=== PATIENT | female | born 1995 | race Caucasian/White ===

== ENCOUNTER 2018-12-16 11:53 | Emergency (ER) | payer MEDICAID ==
[~2018-12-16] VITALS: Wt 62.7 kg
[2018-12-16 11:57] VITALS: BP 129/81; PULSE 82; RESP 18
--- NOTE | 2018-12-16 14:34 | ERD ---
ER Documentation Chief Complaint Chief Complaint low abd cramping and vaginal bleeding since last night. sent by ob HPI 23-year-old female presents with vaginal spotting starting today. She is referred by primary doctor for evaluation of vaginal bleeding early . She has minimal suprapubic cramping. Denies fevers, vomiting although she has nausea since early . She is a G3 para 1. ROS All systems reviewed and are negative except as per history of present illness. PMhx/Soc Hx Alcohol Use: No Hx Substance Use: No Hx Tobacco Use: No FmHx Family History: No diabetes, No coronary disease, No other Physical Exam Vitals Vital Signs Date Temp Pulse Resp B/P (MAP) Pulse Ox O2 O2 Flow FiO2 Time Delivery Rate 12/16/18 98.0 82 18 129/81 98 11:57 (97) Physical Exam Const: No acute distress. [id number]. Head: Atraumatic Eyes: Normal Conjunctiva ENT: Normal External Ears, Nose and Mouth. Neck: Full range of motion. No meningismus. Resp: Clear to auscultation bilaterally Cardio: Regular rate and rhythm, no murmurs Abd: Soft, no suprapubic tenderness. No tenderness McBurney's point no M urphy sign., non distended. Normal bowel sounds Skin: No petechiae or rashes Back: No midline or flank tenderness Ext: No cyanosis, or edema Neur: Awake and alert Psych: Normal Mood and Affect Result Diagram: 12/16/18 1319 Results 24 hrs Laboratory Tests Test 12/16/18 13:19 White Blood Count 10.4 10^3/ul Red Blood Count 4.27 10^6/ul Hemoglobin 13.2 g/dl Hematocrit 39.0 % Mean Corpuscular Volume 91.3 fl Mean Corpuscular Hemoglobin 30.9 pg Mean Corpuscular Hemoglobin Concent 33.8 g/dl Red Cell Distribution Width 13.2 % Platelet Count 250 10^3/UL Mean Platelet Volume 10.3 fl Immature Granulocytes % 0.300 % Neutrophils % 90.5 % Lymphocytes % 6.1 % Monocytes % 2.8 % Eosinophils % 0.0 % Basophils % 0.3 % Nucleated Red Blood Cells % 0.0 /100WBC Immature Granulocytes # 0.030 10^3/ul Neutrophils # 9.4 10^3/ul Lymphocytes # 0.6 10^3/ul Monocytes # 0.3 10^3/ul Eosinophils # 0.0 10^3/ul Basophils # 0.0 10^3/ul Nucleated Red Blood Cells # 0.0 10^3/ul Urine Color YELLOW Urine Clarity SLIGHTLY CLOUDY Urine pH 5.0 Urine Specific [place] 1.029 Urine Ketones 2+ mg/dL Urine Nitrite NEGATIVE mg/dL Urine Bilirubin NEGATIVE mg/dL Urine Urobilinogen NEGATIVE mg/dL Urine Leukocyte Esterase NEGATIVE Daniel/ul Urine Microscopic RBC 157 /HPF Urine Microscopic WBC 3 /HPF Urine Squamous Epithelial Cells FEW /HPF Urine Bacteria FEW /HPF Urine Mucus FEW /HPF Urine Hemoglobin 3+ mg/dL Urine Glucose NEGATIVE mg/dL Urine Total Protein 1+ mg/dl Beta HCG, Quantitative 1318.9 mIU/ml Procedures/MDM Patient is Rh+. Quantitative hCG 1300. ROCEDURE: US Obstetrical 1st Trimester with endovaginal scanning and Doppler CLINICAL INDICATION: Vaginal bleeding TECHNIQUE: Multiple real-time images were acquired of the patient's maternal abdomen utilizing a curved array transducer. Endovaginal scanning and Doppler were also applied. COMPARISON: None FINDINGS: The uterus is anteverted and normal in size measuring 8.4 cm in sagittal diameter and 4.8 x 4.2 cm in cross diameter. The endometrial stripe is thickened to 1.4 cm. No intrauterine gestational sac or pole is identified. A 3 mm Nabothian cyst is seen in the cervix. The right ovary measures 2.9 x 2.4 x 2.1 cm and contains a corpus lutein cyst. The left ovary measures 2.2 x 1.4 x 1.4 cm and appears normal. Vascular flow is demonstrated in each ovary on Doppler. There is a moderate amount of echogenic fluid seen in the cul-de-sac suspicious for hemoperitoneum. No adnexal mass is evident. IMPRESSION: 1. Providing the presence of a positive test, this would be a of unknown location. Negative for evidence of an intrauterine and negative for evidence of an adnexal mass. Differential diagnosis includes early intrauterine , failed or ectopic . Recommend correlation with serial serum beta HCG and follow-up ultrasound in 7- 10 days or earlier if clinically warranted. Please see reference below. Reference: Henrietta Delvalle et al. NEJ 2013; 369: [id number]. Please note that if the serum beta HCG is greater than 3000 mIU/mL, the probability of a nonviable IUP or ectopic is 99.5% and the probability of a viable IUP is 0.5%. The beta HCG may be higher than predicted for gestational age in early twin pregnancies, and a single serum HCG measurement cannot reliably differentiate an IUP (viable or nonviable) from an ectopic . 2. There is a right ovarian corpus lutein cyst. The left ovary appears normal. Vascular flow is demonstrated in each ovary. 3. A moderate amount of echogenic fluid, possibly hemoperitoneum is seen within the cul-de-sac. 4. No adnexal mass is identified. Wellington Linares Physician Date Time Electronically viewed and signed by Wellington Linares Physician on 12/16/2018 14:01 RH/ Presents with vaginal bleeding without history of clots or tissue for the last day. She is presently 5 weeks by dates. There is no current visible intrauterine or extrauterine . Differential includes early normal , ectopic , miscarriage. She is well-appearing without significant pain. She will be discharged home with recommendations for 2-day recheck of hormones and possibly ultrasound, return precautions for worsening pain, bleeding, fevers, new or worsening symptoms. Current signs or symptoms do not suggest appendicitis, tubo-ovarian abscess, additional causes of abdominal pain. Departure Diagnosis: Primary Impression: Vaginal bleeding in patient at less than 20 weeks ges... Condition: Stable Patient Instructions: Bleeding During Early Additional Instructions: Unable to currently visualized normal . Possible early normal but suspect may be miscarriage or ectopic . recommend repeat hormone level in 2 days. Recheck sooner for fevers, worsening bleeding, new or worsening symptoms. ANDRES CUTLER MD Dec 16, 2018 14:34
== END 2018-12-16 14:47 | disposition home or self-care (01) ==
LOC: FTE 11:53
DX: O20.9 Hemorrhage in early pregnancy, unspecified (principal); Z3A.01 Less than 8 weeks gestation of pregnancy
CPT/HCPCS: 36415; 76801; 76817; 81001; 84702; 85025; 86900; 86901; Z7502

== ENCOUNTER 2018-12-17 17:16 | Inpatient (IN) | payer MEDICAID ==
[~2018-12-17] VITALS: Ht 170.2 cm; Wt 62.9 kg
[2018-12-17] MEDS ORDERED: morphine 4 MG/ML VIAL IV STA (22:47)
[2018-12-17] MEDS ORDERED: ONDANSETRON 4 MG INJ IV STA (22:47)
[2018-12-18] VITALS (26 sets, daily range): BP systolic 109–134; BP diastolic 56–85; PULSE 76–101; RESP 13–31; Ht 170.2 cm; Wt 62.9 kg
[2018-12-18] MEDS ORDERED: SOD CHLORIDE 0.9% 1,000 ML IV ONE
--- NOTE | 2018-12-18 00:07 | ERD ---
ER Documentation Chief Complaint Chief Complaint L pelvic pain with VB X 2 days HPI This is a 23-year-old female, who is , who presents with right lower abdominal pain. She was seen here yesterday, at that time she had a positive quant beta hCG, with no definitive IUP, she is advised to follow-up within 48 hours for repeat ultrasound. She has continued to have pain, as well as vaginal bleeding, although currently she is not bleeding. She has not had a fever, she denies any nausea or vomiting. ROS All systems reviewed and are negative except as per history of present illness. Allergies Allergies: Coded Allergies: No Known Allergy (Unverified , 12/17/18) PMhx/Soc Medical and Surgical Hx: pt denies Surgical Hx History of Surgery: No Anesthesia Reaction: No Hx Neurological Disorder: No Hx Respiratory Disorders: No Hx Cardiac Disorders: No Hx Psychiatric Problems: No Hx Miscellaneous Medical Probl: No Hx Alcohol Use: No Hx Substance Use: No Hx Tobacco Use: No Smoking Status: Never smoker Physical Exam Vitals Vital Signs Date Temp Pulse Resp B/P (MAP) Pulse Ox O2 O2 Flow FiO2 Time Delivery Rate 12/17/18 72 20 129/75 100 Room Air 19:30 (93) 12/17/18 99.1 91 18 144/83 97 17:24 (103) Physical Exam Const: No acute distress Head: Atraumatic Eyes: Normal Conjunctiva ENT: Normal External Ears, Nose and Mouth. Neck: Full range of motion. No meningismus. Resp: Clear to auscultation bilaterally Cardio: Regular rate and rhythm, no murmurs Abd: Soft, there is mild tenderness in the right lower abdominal area, there is no rebound or guarding, non distended. Normal bowel sounds Skin: No petechiae or rashes Back: No midline or flank tenderness Ext: No cyanosis, or edema Neur: Awake and alert Psych: Normal Mood and Affect Result Diagram: 12/17/18193212/17/181932 Results 24 hrs Laboratory Tests Test 12/17/18 19:33 12/17/18 20:00 12/17/18 20:52 White Blood Count 6.8 10^3/ul Red Blood Count 4.14 10^6/ul Hemoglobin 12.6 g/dl Hematocrit 37.6 % Mean Corpuscular Volume 90.8 fl Mean Corpuscular Hemoglobin 30.4 pg Mean Corpuscular 33.5 g/dl Hemoglobin Concent Red Cell Distribution Width 13.2 % Platelet Count 232 10^3/UL Mean Platelet Volume 10.1 fl Immature Granulocytes % 0.300 % Neutrophils % 64.4 % Lymphocytes % 27.3 % Monocytes % 7.4 % Eosinophils % 0.0 % Basophils % 0.6 % Nucleated Red Blood Cells % 0.0 /100WBC Immature Granulocytes # 0.020 10^3/ul Neutrophils # 4.4 10^3/ul Lymphocytes # 1.8 10^3/ul Monocytes # 0.5 10^3/ul Eosinophils # 0.0 10^3/ul Basophils # 0.0 10^3/ul Nucleated Red Blood Cells # 0.0 10^3/ul Sodium Level 141 mmol/L Potassium Level 4.3 mmol/L Chloride Level 109 mmol/L Carbon Dioxide Level 20 mmol/L Anion Gap 12 Blood Urea Nitrogen 7 mg/dl Creatinine 0.56 mg/dl Est Glomerular Filtrat > 60 mL/min Rate mL/min Glucose Level 103 mg/dl Calcium Level 10.1 mg/dl Total Bilirubin 0.2 mg/dl Direct Bilirubin 0.00 mg/dl Indirect Bilirubin 0.2 mg/dl Aspartate Amino 23 IU/L Transf (AST/SGOT) Alanine 26 IU/L Aminotransferase (ALT/SGPT) Alkaline Phosphatase 80 IU/L Total Protein 7.9 g/dl Albumin 4.6 g/dl Globulin 3.30 g/dl Albumin/Globulin Ratio 1.39 Lipase 46 U/L Beta HCG, Quantitative 1700.6 mIU/ml Urine Color YELLOW Urine Clarity CLEAR Urine pH 6.0 Urine Specific [place] 1.027 Urine Ketones 1+ mg/dL Urine Nitrite NEGATIVE mg/dL Urine Bilirubin NEGATIVE mg/dL Urine Urobilinogen 1+ mg/dL Urine Leukocyte Esterase NEGATIVE Daniel/ul Urine Microscopic RBC 10 /HPF Urine Microscopic WBC 2 /HPF Urine Squamous Epithelial Cells FEW /HPF Urine Mucus FEW /HPF Urine Hemoglobin 1+ mg/dL Urine Glucose NEGATIVE mg/dL Urine Total Protein NEGATIVE mg/dl POC Beta HCG, Qualitative POSITIVE Current Medications Medications Dose Sig/Shayan Start Time Status Last (Trade) Ordered Route PRN Stop Time Admin Dose Reason Admin Morphine 4 mg ONCE STAT 12/17/18 DC Sulfate IV 22:47 (morphine) 12/17/18 22:48 Ondansetron 4 mg ONCE STAT 12/17/18 DC HCl (Zofran IV 22:47 Inj) 12/17/18 22:48 Procedures/MDM This is a 23-year-old female presents for evaluation of right lower abdominal pain. Her ultrasound showed a ectopic estimated about 5 weeks, there was free fluid noted, the patient is otherwise medically stable. Her hCG, up trended by about 400, [employer] consult evaluated the patient at the bedside, and will admit the patient, for monitoring, and will plan on decision of surgery, versus medical management. Accepting Care Team: Current data and ongoing care discussed. Primary: Lizeth Consulting: None Outstanding Data: none Departure Diagnosis: Primary Impression: Ectopic Location of ectopic : unspecified location Intrauterine status: unspecified Qualified Codes: O00.90 - Unspecified ectopic without intrauterine Condition: CASSANDRA Elder MD Dec 18, 2018 00:02
--- NOTE | 2018-12-18 00:18 | HP ---
Date/Time of Note Date/Time of Note DATE: 12/18/18 TIME: 00:06 Assessment/Plan VTE Prophylaxis SCD contraindicated: low risk/ambulating Pharmacological prophylaxis: NA/contraindicated Pharm contraindication: low risk/ambulating Lines/Catheters IV Catheter Type (from Nrsg): Peripheral IV Central line still needed: No Urinary Cath still in place: No Assessment/Plan Assessment/Plan A: Right ectopic . Pt is stable. P: Discussed with pt her options of methotrexate vs surgery and the pros and cons associated with each. Will admit the pt, keep her NPO and notify Dr Raymond in the AM that she is here so they may make a decision together about the best course of action for her. Result Diagram: 12/17/18193212/17/181932 Results 24hrs Laboratory Tests Test 12/17/18 19:33 12/17/18 20:00 12/17/18 20:52 White Blood Count 6.8 # Red Blood Count 4.14 L Hemoglobin 12.6 Hematocrit 37.6 Mean Corpuscular Volume 90.8 Mean Corpuscular Hemoglobin 30.4 Mean Corpuscular Hemoglobin Concent 33.5 Red Cell Distribution Width 13.2 Platelet Count 232 Mean Platelet Volume 10.1 Immature Granulocytes % 0.300 Neutrophils % 64.4 Lymphocytes % 27.3 Monocytes % 7.4 Eosinophils % 0.0 Basophils % 0.6 Nucleated Red Blood Cells % 0.0 Immature Granulocytes # 0.020 Neutrophils # 4.4 Lymphocytes # 1.8 Monocytes # 0.5 Eosinophils # 0.0 Basophils # 0.0 Nucleated Red Blood Cells # 0.0 Sodium Level 141 Potassium Level 4.3 Chloride Level 109 Carbon Dioxide Level 20 L Anion Gap 12 Blood Urea Nitrogen 7 Creatinine 0.56 Est Glomerular Filtrat Rate mL/min > 60 Glucose Level 103 Calcium Level 10.1 Total Bilirubin 0.2 Direct Bilirubin 0.00 Indirect Bilirubin 0.2 Aspartate Amino Transf (AST/SGOT) 23 Alanine Aminotransferase (ALT/SGPT) 26 Alkaline Phosphatase 80 Total Protein 7.9 Albumin 4.6 Globulin 3.30 H Albumin/Globulin Ratio 1.39 Lipase 46 Beta HCG, Quantitative 1700.6 Urine Color YELLOW Urine Clarity CLEAR Urine pH 6.0 Urine Specific [place] 1.027 Urine Ketones 1+ H Urine Nitrite NEGATIVE Urine Bilirubin NEGATIVE Urine Urobilinogen 1+ H Urine Leukocyte Esterase NEGATIVE Urine Microscopic RBC 10 H Urine Microscopic WBC 2 Urine Squamous Epithelial Cells FEW Urine Mucus FEW A Urine Hemoglobin 1+ H Urine Glucose NEGATIVE Urine Total Protein NEGATIVE POC Beta HCG, Qualitative POSITIVE H HPI/ROS Admit Date/Time Admit Date/Time December 17, 2018 Hx of Present Illness 23 y.o. A1 whose baby is 6 months old and has a new at ~5 weeks by dates and came in yesterday with bleeding and right lower quadrant pain. BHCG yesterday was 1318. US did not show an IUP nor any adnexal masses. She was asked to return today and a repeat BHCG is 1700 and on US there is a small sac with a yolk sac in the right adnexa and a small amount of free fluid. Her Hgb is 12.6, BP is 129/75 and her right-sided pain is mild. Pt states that her doctor is Dr Raymond as he provided care and delivered her baby at [place]. ROS Constitutional: no complaints Respiratory: no complaints Gastrointestinal: no complaints Genitourinary: bleeding (light and mild to moderate right pelvic pain) Musculoskeletal: no complaints Neurologic: no complaints Psychological: no complaints, nl mood/affect PMH/Family/Social Past Medical History Asthma for which she uses an inhaler. Medications Current Medications Sodium Chloride 1,000 ml @ 1,000 mls/hr Q1H ONCE IV ; Start 12/18/18 at 00:00; Stop 12/18/18 at 00:59 Coded Allergies: No Known Allergy (Unverified , 12/17/18) Past Surgical History Past Surgical Hx: no surgical history Social History Alcohol Use: none Smoking Status: Never smoker Drug Use: none Exam/Review of Systems Vital Signs Vitals Vital Signs Date Temp Pulse Resp B/P (MAP) Pulse Ox O2 O2 Flow FiO2 Time Delivery Rate 12/17/18 72 20 129/75 100 Room Air 19:30 (93) 12/17/18 99.1 17:24 Exam Constitutional: alert, oriented, well developed Psych: no complaints, nl mood/affect Respiratory: clear to auscultation, normal air movement Cardiovascular: regular rate and rhythm, nl pulses Gastrointestinal: soft, tender (in the right, lower quadran but no rebound) Neurological: nl mental status, nl speech, nl strength BARRERA PORRAS MD Dec 18, 2018 00:17
[2018-12-18] MEDS: LACTATED RINGER'S 1,000 ML IV SCH ×5 (02:23→22:29)
[2018-12-18] MEDS ORDERED: morphine 4 MG/ML VIAL IV PRN (02:30)
[2018-12-18] MEDS ORDERED: ONDANSETRON 4 MG INJ IV PRN ×3 (02:30→12:30)
[2018-12-18] MEDS ORDERED: morphine 2 MG INJ IV PRN (02:30)
--- NOTE | 2018-12-18 09:50 | HP ---
Date/Time of Note Date/Time of Note DATE: 12/18/18 TIME: 09:40 Assessment/Plan VTE [place]axis [place] [facility] [place]: 1 [place]CD [place] [facility] SCD contraindicated: low risk/ambulating Pharmacological prophylaxis: NA/contraindicated Pharm contraindication: low risk/ambulating Lines/Catheters [facility] Peripheral IV Urinary Cath still in place: No Assessment/Plan Assessment/Plan Most probably R. Ectopic with free fluid plan is exploratory laparotomy and right salpingectomy Result Diagram: 12/17/18193212/17/181932 Results 24hrs Laboratory Tests Test 12/17/18 19:33 12/17/18 20:00 12/17/18 20:52 White Blood Count 6.8 # Red Blood Count 4.14 L Hemoglobin 12.6 Hematocrit 37.6 Mean Corpuscular Volume 90.8 Mean Corpuscular Hemoglobin 30.4 Mean Corpuscular Hemoglobin Concent 33.5 Red Cell Distribution Width 13.2 Platelet Count 232 Mean Platelet Volume 10.1 Immature Granulocytes % 0.300 Neutrophils % 64.4 Lymphocytes % 27.3 Monocytes % 7.4 Eosinophils % 0.0 Basophils % 0.6 Nucleated Red Blood Cells % 0.0 Immature Granulocytes # 0.020 Neutrophils # 4.4 Lymphocytes # 1.8 Monocytes # 0.5 Eosinophils # 0.0 Basophils # 0.0 Nucleated Red Blood Cells # 0.0 Sodium Level 141 Potassium Level 4.3 Chloride Level 109 Carbon Dioxide Level 20 L Anion Gap 12 Blood Urea Nitrogen 7 Creatinine 0.56 Est Glomerular Filtrat Rate mL/min > 60 Glucose Level 103 Calcium Level 10.1 Total Bilirubin 0.2 Direct Bilirubin 0.00 Indirect Bilirubin 0.2 Aspartate Amino Transf (AST/SGOT) 23 Alanine Aminotransferase (ALT/SGPT) 26 Alkaline Phosphatase 80 Total Protein 7.9 Albumin 4.6 Globulin 3.30 H Albumin/Globulin Ratio 1.39 Lipase 46 Beta HCG, Quantitative 1700.6 Urine Color YELLOW Urine Clarity CLEAR Urine pH 6.0 Urine Specific [place] 1.027 Urine Ketones 1+ H Urine Nitrite NEGATIVE Urine Bilirubin NEGATIVE Urine Urobilinogen 1+ H Urine Leukocyte Esterase NEGATIVE Urine Microscopic RBC 10 H Urine Microscopic WBC 2 Urine Squamous Epithelial Cells FEW Urine Mucus FEW A Urine Hemoglobin 1+ H Urine Glucose NEGATIVE Urine Total Protein NEGATIVE POC Beta HCG, Qualitative POSITIVE H HPI/ROS Admit Date/Time Admit Date/Time December 17, 2018 Hx of Present Illness she had positive test 4 days ago, she developed RLQ pain and vaginal bleeding and reported to ER. HCG was about 1300. she was requested to return to ER next day. hcg increased to 1700, but repeat sono revealed mass in left adnexa containing gestational sac and Yolk sac. she also has free fluid. she has increased abdominal pain. Dr. Stanley offered her options of surgery Vs. Methotrexate. she declines Methotrexate. she desires to proceed with surgery. I explained to patient the limitations of ultrasound. I explained to her that she may not have ectopic despite the fact that sono is c/w GS and Yolk Sac. I discussed with the patient the risks, benefits, indications, and alternatives of procedure including but not limited to risks of infection, bleeding, damage to other organs, bowel, bladder, hernia formation, scar formation, possibility of blood transfusion. She was allowed to ask questions. All her questions were answered. Informed consent has been obtained. ROS Constitutional: no complaints, improved Eyes: no complaints ENT: no complaints Respiratory: no complaints Cardiovascular: no complaints Gastrointestinal: no complaints, pain, blood, constipation, decreased appetite, diarrhea, flatus, nausea, passing stool, vomiting, other Genitourinary: no complaints, bleeding, dysuria, discharge, flank pain, hematuria, other (h/o Chlamidia) Musculoskeletal: no complaints Skin: no complaints Neurologic: no complaints Endocrine: no complaints Lymphatic: no complaints Psychological: no complaints, nl mood/affect Immunologic: no complaints PMH/Family/Social Past Medical History Medications Current Medications Lactated Ringer's 1,000 ml @ 125 mls/hr Q8H IV Last administered on 12/18/18at 02:23; Admin Dose 125 MLS/HR; Start 12/18/18 at 00:30 Ondansetron HCl (Zofran Inj) 4 mg Q4 PRN IV NAUSEA AND/OR VOMITING; Start 12/18/18 at 02:30 Morphine Sulfate (morphine) 2 mg Q4 PRN IV MODERATE PAIN; Start 12/18/18 at 02:30 Morphine Sulfate (morphine) 4 mg Q4 PRN IV severe pain Last administered on 12/18/18at 08:24; Admin Dose 4 MG; Start 12/18/18 at 02:30 Coded Allergies: No Known Allergy (Unverified , 12/17/18) Past Surgical History Past Surgical Hx: no surgical history Social History Alcohol Use: none Smoking Status: Never smoker Drug Use: none Exam/Review of Systems Vital Signs Vitals Vital Signs Date Temp Pulse Resp B/P (MAP) Pulse Ox O2 O2 Flow FiO2 Time Delivery Rate 12/18/18 99.2 89 14 123/60 100 Room Air 07:13 (81) Intake and Output 12/17/18 12/17/18 12/18/18 1414:59 22:59 06:59 IntakeIntake Total 400 ml OutputOutput Total 2 ml BalanceBalance 398 ml Exam Constitutional: alert, oriented, well developed Psych: no complaints, nl mood/affect Head: normocephalic, atraumatic Eyes: nl conjunctiva, EOMI, nl lids, nl sclera, PERRL ENMT: nl external ears & nose, nl lips & teeth, nl nasal mucosa & septum Neck: supple, non-tender Respiratory: clear to auscultation, normal air movement Cardiovascular: regular rate and rhythm, nl pulses Gastrointestinal: soft, nl liver, spleen, non-tender, ascites, bowel sounds, distended, firm, hepatomegaly, mass, rebound or guarding, splenomegaly, surgical scars, tender, other Musculoskeletal: nl extremities to inspection Extremities: normal pulses Neurological: SIFTER OPERATOR II-XII intact, nl mental status, nl speech, nl strength Skin: nl turgor; No rash or lesions Lymph: nl lymph nodes MOHIT HENSON MD Dec 18, 2018 09:50
--- NOTE | 2018-12-18 11:56 | PREAC ---
Date/Time of Note Date/Time of Note DATE: 12/18/18 TIME: 11:55 Anesthesia Eval and Record Evaluation Time Pre-Procedure Interview DATE: 12/18/18 TIME: 11:55 Age 23 Sex female NPO: 8 hrs Preoperative diagnosis ectopic Planned procedure exploratory laparotomy and R salpingectomy Past Medical History Past Medical History: None Surgery & Anesthesia Issues No known issue Meds Anticoagulation: No Beta Dennis within 24 hr: No Reason Beta Dennis not given: Pt. not on B-Dennis Current Medications Lactated Ringer's 1,000 ml @ 125 mls/hr Q8H IV Last administered on 12/18/18at 10:05; Admin Dose 125 MLS/HR; Start 12/18/18 at 00:30 Ondansetron HCl (Zofran Inj) 4 mg Q4 PRN IV NAUSEA AND/OR VOMITING; Start 12/18/18 at 02:30 Morphine Sulfate (morphine) 2 mg Q4 PRN IV MODERATE PAIN; Start 12/18/18 at 02:30 Morphine Sulfate (morphine) 4 mg Q4 PRN IV severe pain Last administered on 12/18/18at 08:24; Admin Dose 4 MG; Start 12/18/18 at 02:30 Meds reviewed: Yes Allergies Coded Allergies: No Known Allergy (Unverified , 12/17/18) Allergies Reviewed: Yes Labs/Studies Labs Reviewed: Reviewed by anesthesiologist Result Diagram: 12/17/18193212/17/181932 Laboratory Tests 12/17/18 19:33 test: Positive Pre-procedure Exam Last vitals Vital Signs Date Temp Pulse Resp B/P (MAP) Pulse Ox O2 O2 Flow FiO2 Time Delivery Rate 12/18/18 99.2 89 14 123/60 100 Room Air 07:13 (81) Airway: Adequate mouth opening, Adequate thyromental dist Mallampati: Mallampati II Teeth: Normal Lung: Normal Heart: Normal ASA Physical Status ASA physical status: 2 Emergency: E Planned Anesthetic General/MAC: ETT Nerve block: TAP (bilateral) Pre-operative Attestations Prior to commencing anesthesia and surgery, the patient was re-evaluated, there was verification of: *The patient's identity *The results of appropriate recent lab work and preoperative vital signs *The above evaluation not changing prior to induction *Anesthetic plan, risk benefits, alternative and complications discussed with patient/family; questions answered; patient/family understands, accepts and wishes to proceed. ELEUTERIO ASHER Dec 18, 2018 11:56
[2018-12-18] MEDS ORDERED: HYDROmorphONE 1 MG/5 ML IV SYRINGE IV PRN ×3 (12:00)
[2018-12-18] MEDS ORDERED: FENTAnyl 50 MCG/ML VIAL IV PRN ×3 (12:00)
[2018-12-18] MEDS ORDERED: METOCLOPRAMIDE 10 MG INJ IV PRN ×2 (12:00→12:30)
[2018-12-18] MEDS ORDERED: ALBUTEROL 0.083% (NEB) 2.5 MG/3 ML AMP HHN PRN (12:00)
[2018-12-18] MEDS ORDERED: FENTAnyl 50 MCG/ML VIAL ONE ×2 (12:28→13:27)
[2018-12-18] MEDS ORDERED: ROPIVACAINE 0.5 % 30 ML VIAL ONE (12:29)
[2018-12-18] MEDS ORDERED: HYDROCODONE/APAP (5/325) TAB PO PRN (12:30)
[2018-12-18] MEDS ORDERED: DIPHENHYDRAMINE 50 MG INJ IV PRN (12:30)
[2018-12-18] MEDS ORDERED: PROPOFOL 20 ML ONE (13:29)
[2018-12-18] MEDS ORDERED: NEOSTIGMINE 3 MG/3 ML SYRINGE ONE (13:29)
[2018-12-18] MEDS ORDERED: GLYCOPYRROLATE 0.4 MG INJ ONE (13:29)
[2018-12-18] MEDS ORDERED: SUCCINYLCHOLINE CHLORIDE 100 MG/5 ML SYG IV ONE (13:29)
[2018-12-18] MEDS ORDERED: LIDOCAINE 100 MG SYRINGE ONE (13:29)
[2018-12-18] MEDS ORDERED: ROCURONIUM 50 MG INJ ONE (13:29)
[2018-12-18] MEDS ORDERED: CEFAZOLIN 1 GM INJ ONE (13:29)
--- NOTE | 2018-12-18 13:39 | OPR ---
Date/Time of Note Date/Time of Note DATE: 12/18/18 TIME: 13:34 Operative Report Procedure Date: Dec 18, 2018 Preoperative Diagnosis Ruptured Right Tubal Ectopic Postoperative Diagnosis same Operation/Procedure Performed Exploratory Laparotomy Right salpingectomy Lysis of adhesion Surgeon Ania Raymond MD Systems Integrator none Anesthesia Type: general Estimated Blood Loss: other (200 ml hematoperitoneum and 50 ml EBL during surgery) Transfusion none Specimen Right tube and ectopic Grafts/Implants none Tubes/Drains Rogers Cath Complications none Pt Condition Post Procedure: stable Disposition: PACU Procedure Description She was taken to the operating room. Spinal anesthesia was induced. She was prepped and draped in the usual sterile fashion. Surgical time out one. Anesthesia was tested to be adequate. With permission from anesthesiologist, a knife was used to make a Pfannenstiel skin incision. The incision was taken down in layers. The fascia was cut, undermined and from the underlying muscle using sharp and blunt dissection. All the bleeders were cauterized. Peritoneum was entered bluntly. Exploration revealed left tube and ovary to be normal and right ovary was also normal. she had about 200 ml hematoperitoneum. uterus was normal. Right tube had ruptured large ectopic. Adhesions from Right tube to omentum was released using sharp and blunt dissection. I had to proceed with Right salpingectomy due to significant damage already to the tube. Pean clamp was applied and mesosalpinx was cut. the ectopic and tube sent to pathology. I double suture ligated the pedicle. no bleeding noted. Irrigation was done carefully. Careful evaluation of the right tube revealed no further bleeding. The peritoneum and rectus muscles and fascia were evaluated. All bleeders cauterized. Peritoneum was closed using 2-0 Monocryl. At this time, the count was correct. Rectus muscle was reapproximated using 2-0 Monocryl. Rectus fascia was closed using #1 Vicryl. Subcutaneous tissue was cleaned and irrigated. All bleeders cauterized and the skin closed using 4-0 Monocryl. All counts correct. ANIA RAYMOND MD Dec 18, 2018 13:39
[2018-12-18] MEDS: KETOROLAC 30 MG INJ IV PRN (15:19)
[2018-12-18] MEDS: morphine 4 MG/ML VIAL IV PRN ×2 (17:08→20:28)
--- NOTE | 2018-12-18 20:14 | PAC ---
Date/Time of Note Date/Time of Note DATE: 12/18/18 TIME: 20:14 Post-Anesthesia Notes Post-Anesthesia Note Last documented vital signs Vital Signs Date Temp Pulse Resp B/P (MAP) Pulse Ox O2 O2 Flow FiO2 Time Delivery Rate 12/18/18 98.0 98 18 121/70 100 Room Air 19:16 (87) 12/18/18 8.0 13:48 Activity: WNL Respiratory function: WNL Cardiovascular function: WNL Mental status: Baseline Pain reasonably controlled: Yes Hydration appropriate: Yes Nausea/Vomiting absent: Yes ELEUTERIO ASHER Dec 18, 2018 20:14
[2018-12-18] MEDS: FAMOTIDINE 20 MG INJ IV SCH (20:28)
[2018-12-19 00:22] VITALS: BP 119/68; PULSE 89; RESP 18
[2018-12-19] MEDS: LACTATED RINGER'S 1,000 ML IV SCH ×3 (00:30→08:30)
[2018-12-19 04:00] VITALS: BP 115/68; PULSE 84; RESP 18
[2018-12-19] MEDS: KETOROLAC 30 MG INJ IV PRN (04:12)
--- NOTE | 2018-12-19 07:45 | DS ---
Date/Time of Note Date/Time of Note DATE: 12/19/18 TIME: 07:40 Discharge Summary Admission/Discharge Info Admit Date/Time Dec 17, 2018 at 23:57 Discharge Date/Time 12/19/2018 Discharge Diagnosis s/p R. Salpingectomy for Right Ectopic Patient Condition: Good Consults none Procedures R. Salpingectomy Hx of Present Illness she had positive test 4 days ago, she developed RLQ pain and vaginal bleeding and reported to ER. HCG was about 1300. she was requested to return to ER next day. hcg increased to 1700, but repeat sono revealed mass in left adnexa containing gestational sac and Yolk sac. she also has free fluid. she has increased abdominal pain. Dr. Stanley offered her options of surgery Vs. Methotrexate. she declines Methotrexate. she desires to proceed with surgery. I explained to patient the limitations of ultrasound. I explained to her that she may not have ectopic despite the fact that sono is c/w GS and Yolk Sac. I discussed with the patient the risks, benefits, indications, and alternatives of procedure including but not limited to risks of infection, bleeding, damage to other organs, bowel, bladder, hernia formation, scar formation, possibility of blood transfusion. She was allowed to ask questions. All her questions were answered. Informed consent has been obtained. Hospital Course she underwent right salpingectomy without any problems. she is recovering well. she will be discharged after ambulation and flatus. I provided Rx for [place] and Motrin Follow-up Plan Dr. Mandi MD 2 weeks Primary Care Provider Care Physician No Primary Time spent on discharge: < 30 minutes Pending Labs Laboratory Tests Test 12/19/18 04:47 White Blood Count 6.5 10^3/ul (4.8-10.8) Red Blood Count 3.41 10^6/ul (4.20-5.40) Hemoglobin 10.6 g/dl (12.0-16.0) Hematocrit 31.0 % (37.0-47.0) Mean Corpuscular Volume 90.9 fl (82.0-101.0) Mean Corpuscular Hemoglobin 31.1 pg (29.0-33.0) Mean Corpuscular Hemoglobin Concent 34.2 g/dl (32.0-37.0) Red Cell Distribution Width 13.1 % (11.5-14.5) Platelet Count 181 10^3/UL (140-415) Mean Platelet Volume 10.5 fl (7.4-10.4) Immature Granulocytes % 0.300 % (0.001-0.429) Neutrophils % 70.0 % (39.0-77.0) Lymphocytes % 19.2 % (15.0-51.0) Monocytes % 10.0 % (0.0-11.0) Eosinophils % 0.0 % (0.0-7.0) Basophils % 0.5 % (0.0-2.0) Nucleated Red Blood Cells % 0.0 /100WBC (0.0-0.0) Immature Granulocytes # 0.020 10^3/ul (0.0-0.031) Neutrophils # 4.6 10^3/ul (1.6-7.5) Lymphocytes # 1.3 10^3/ul (0.8-2.9) Monocytes # 0.7 10^3/ul (0.3-0.9) Eosinophils # 0.0 10^3/ul (0.0-0.5) Basophils # 0.0 10^3/ul (0.0-0.1) Nucleated Red Blood Cells # 0.0 10^3/ul (0.0-0.0) MOHIT HENSON MD Dec 19, 2018 07:45
[2018-12-19 08:24] VITALS: BP 107/59; PULSE 66; RESP 18
[2018-12-19] MEDS ORDERED: MAGNESIUM HYDROXIDE 30ML CUP PO ONE (08:30)
[2018-12-19] MEDS ORDERED: BISACODYL 10 MG SUPP PR PRN (08:30)
[2018-12-19] MEDS ORDERED: MINERAL OIL 30ML CUP PO ONE (08:30)
[2018-12-19] MEDS: FAMOTIDINE 20 MG INJ IV SCH (09:19)
== END 2018-12-19 13:30 | disposition home or self-care (01) | DRG 819 ==
LOC: E/R 17:16 → MS1 23:57
PROVIDERS: ADMIT Specialist; ATTEND Specialist
PROC: 0UB50ZZ Excision of Right Fallopian Tube, Open Approach (ICD-10-PCS; 2018-12-18)
PROC: 10T20ZZ Resection of Products of Conception, Ectopic, Open Approach (ICD-10-PCS; principal; 2018-12-18 12:00)
DX: O00.101 Right tubal pregnancy without intrauterine pregnancy (principal)
CPT/HCPCS: 36415; 76801; 76817; 80048; 80053; 81001; 81025; 83690; 84702; 85025; 87086; 87110; 87591; 88305; J0690; J1170; J1885; J2001; J2270; J2405; J2710; J2765; J2795; J3010; J7030; J7120